=== PATIENT | male | born 1995 | race Two or more races ===

== ENCOUNTER 2020-09-03 20:06 | Emergency (ER) | payer SELFPAY ==
[~2020-09-03] VITALS: Ht 170.2 cm; Wt 68.1 kg
[2020-09-03 20:20] VITALS: BP 116/73
== END 2020-09-03 21:49 | disposition home or self-care (01) ==
LOC: ER 21:45
DX: U07.1 COVID-19 (principal); R07.89 Other chest pain
CPT/HCPCS: 87635; 99283